=== PATIENT | female | born 1960 | race Caucasian/White ===

== ENCOUNTER 2023-03-13 09:52 | Outpatient (CLI) | payer MEDICARE, MEDICAID | END 2023-03-13 23:59 | disposition home or self-care (01) | LOC: RAD 09:52 | PROVIDERS: ATTEND Podiatrist Foot & Ankle Surgery | DX: M86.69 Other chronic osteomyelitis, multiple sites (principal) | CPT/HCPCS: 78315; A9503 ==

== ENCOUNTER 2023-12-19 12:27 | Emergency (ER) | payer MEDICARE, MEDICAID ==
[~2023-12-19] VITALS: Ht 176.5 cm; Wt 85.7 kg
[2023-12-19 12:29] VITALS: TEMP 98.4
[2023-12-19 13:36] LABS: ALBUMIN 3.5 G/DL (3.4-5.0); ANION GAP 10 (8-16); BLOOD UREA NITROGEN 15 MG/DL (7-18); BUN/CREATININE RATIO 26.3 (10.0-20.0); CALCIUM 8.7 MG/DL (8.5-10.1); CHLORIDE 105 MMOL/L (99-107); CREATININE 0.57 MG/DL (0.40-0.90); GLUCOSE 139 MG/DL (70-104); POTASSIUM 4.7 MMOL/L (3.5-5.1); PRO BRAIN NATRIURETIC PEPTIDE 63 PG/ML (0-125); SODIUM 139 MMOL/L (135-145); TOTAL CARBON DIOXIDE 23.6 MMOL/L (24-32); eCRCL 105 ML/MIN; eGFR > 90 ML/MIN
[2023-12-19 14:00] LABS: BASOPHILS % (AUTO) 0.5 % (0-1); EOSINOPHILS # (AUTO) 0.2 X10'3 (0-0.9); EOSINOPHILS % (AUTO) 2.8 % (0-6); HEMATOCRIT 45.8 % (35.0-45.0); HEMOGLOBIN 15.8 g/dl (12.0-16.0); LYMPHOCYTES # (AUTO) 1.7 X10'3 (1.1-4.8); LYMPHOCYTES % (AUTO) 28.6 % (21-51); MEAN CORPUSCULAR HEMOGLOBIN 30.5 PG (27.0-31.0); MEAN CORPUSCULAR HGB CONC 34.5 g/dL (33.0-36.5); MEAN CORPUSCULAR VOLUME 88.4 FL (78-98); MEAN PLATELET VOLUME 8.1 FL (7.4-10.4); MONOCYTES # (AUTO) 0.7 X10'3 (0-0.9); MONOCYTES % (AUTO) 12.2 % (2-12); NEUTROPHILS # (AUTO) 3.3 X10'3 (1.8-7.7); NEUTROPHILS % (AUTO) 55.9 % (42-75); PLATELET COUNT 122 X10'3 (140-440); RED BLOOD COUNT 5.18 X10'6 (4.20-5.60); RED CELL DISTRIBUTION WIDTH 13.3 % (11.5-14.5); WHITE BLOOD COUNT 5.9 X10'3 (4.5-11.0)
[2023-12-19] MEDS ORDERED: iohexol 300mg/ml 100ml inj. ONE (14:48)
[2023-12-19 15:51] VITALS: BP 137/76; PULSE 80; RESP 24; O2SAT 97
[2023-12-19 17:05] LABS: BILIRUBIN,URINE NEGATIVE (Neg); CLARITY,URINE CLEAR (Clear); GLUCOSE, URINE NEGATIVE (Neg); KETONES,URINE NEGATIVE (Neg); LEUKOCYTE ESTERASE ,URINE NEGATIVE (Neg); NITRITES, URINE NEGATIVE (Neg); OCCULT BLOOD,URINE NEGATIVE (Neg); PH,URINE 6.5 (4.8-8.0); PROTEIN,URINE NEGATIVE (Neg)
[2023-12-19 17:06] LABS: COLOR,URINE DARK YELLOW (Yellow); UA COLLECTION TYPE VOIDED
[2023-12-19 17:32] LABS: MONOTEST NEGATIVE (Neg)
== END 2023-12-19 18:05 | disposition home or self-care (01) ==
LOC: ER 12:27
DX: R16.1 Splenomegaly, not elsewhere classified (principal); R93.5 Abnormal findings on diagnostic imaging of other abdominal regions, including retroperitoneum; I10 Essential (primary) hypertension; F17.200 Nicotine dependence, unspecified, uncomplicated
CPT/HCPCS: 36415; 71045; 71260; 74177; 80048; 81003; 83880; 84484; 85025; 86308; 93005; 99285; J3490; Q9967

== ENCOUNTER 2024-11-30 14:06 | Emergency (ER) | payer MEDICARE, MEDICAID ==
[~2024-11-30] VITALS: Ht 176.5 cm; Wt 81.9 kg
[2024-11-30 14:19] VITALS: BP 121/66; PULSE 93; RESP 17; TEMP 98.2; O2SAT 98
[2024-11-30 15:31] LABS: HEMATOCRIT 22.4 % (35.0-45.0); HEMOGLOBIN 7.7 g/dl (12.0-16.0); MEAN CORPUSCULAR HEMOGLOBIN 27.3 PG (27.0-31.0); MEAN CORPUSCULAR HGB CONC 34.2 g/dL (33.0-36.5); MEAN CORPUSCULAR VOLUME 79.8 FL (78-98); MEAN PLATELET VOLUME 7.4 FL (7.4-10.4); RED BLOOD COUNT 2.81 X10'6 (4.20-5.60); RED CELL DISTRIBUTION WIDTH 18.3 % (11.5-14.5); WHITE BLOOD COUNT 4.6 X10'3 (4.5-11.0)
[2024-11-30 15:53] LABS: PLATELET ESTIMATE DECREASED; TOTAL CELLS COUNTED 100
[2024-11-30 15:54] LABS: ANISOCYTOSIS 1+
[2024-11-30 15:59] LABS: PLATELET COUNT 19 X10'3 (140-440)
[2024-11-30 16:04] LABS: ALANINE AMINOTRANSFERASE 20 U/L (12-78); ALBUMIN/GLOBULIN RATIO 0.9 (1.1-1.5); ALKALINE PHOSPHATASE 203 IU/L (46-116); ANION GAP 14 (8-16); ASPARTATE AMINO TRANSFERASE 292 U/L (10-37); BILIRUBIN,TOTAL 0.9 MG/DL (0.1-1.0); BLOOD UREA NITROGEN 43 MG/DL (7-18); BUN/CREATININE RATIO 23.2 (10.0-20.0); CALCIUM 9.3 MG/DL (8.5-10.1); CHLORIDE 97 MMOL/L (99-107); CREATININE 1.85 MG/DL (0.40-0.90); GLUCOSE 123 MG/DL (70-104); SODIUM 133 MMOL/L (135-145); TOTAL CARBON DIOXIDE 22.5 MMOL/L (24-32); TOTAL PROTEIN 6.4 G/DL (6.4-8.2); eCRCL 32 ML/MIN; eGFR 27 ML/MIN
[2024-11-30 16:11] LABS: PRO BRAIN NATRIURETIC PEPTIDE 13570 PG/ML (0-125)
[2024-12-02] MEDS ORDERED: NO HOME MEDS (02:55)
== END 2024-11-30 20:30 | disposition left against medical advice (07) ==
LOC: ER 14:07
DX: R53.1 Weakness (principal); Z53.21 Procedure and treatment not carried out due to patient leaving prior to being seen by health care provider
CPT/HCPCS: 36415; 80053; 83880; 84484; 85007; 85025; 93005